=== PATIENT | female | born 2000 | race Caucasian/White ===

== ENCOUNTER 2022-03-04 21:13 | Emergency (ER) | payer BC, OTHER ==
[2022-03-04 21:41] LABS: Bilirubin Neg (Negative); Blood, Urine 25 (Negative); Clarity Sl. Cloudy (Clear); Glucose, Urine (Dipstick) Normal (Negative); Ketone, Urine 150 mg/dL (Negative); Leukocyte 500 (Negative); Nitrite Negative (Negative); Protein, Urine (Dipstick) 15 mg/dl (Neg-Trace)
[2022-03-04 21:42] LABS: Pregnancy Test - Urine (BHCG) Negative (Negative); Pregu Control Background? CLEAR/WHITE (CLR/WHITE); Pregu Control Bar Appear? YES (CONTROL BAR)
[2022-03-04 21:45] LABS: Bacteria/HPF Rare-Few HPF (None Seen); Mucous/LPF 1+ LPF (<2+)
[2022-03-04] MEDS ORDERED: Ondansetron PF 4 MG/2 ML Vial ONE (23:30)
[2022-03-04 23:58] LABS: Hemoglobin 12.9 g/dL (12.0-15.5); Mean Corpuscular Hemoglobin 30.4 pg (27.0-33.0); Mean Platelet Volume 9.3 fl (7.4-10.4); Platelet Count 286 10x3/uL (150-450); RBC Distribution Width 12.2 % (11.5-14.5); Red Blood Cell (RBC) Count 4.24 10x6/uL (3.90-5.03)
[2022-03-05 00:15] LABS: ALT (SGPT) 11 U/L (8-55); AST (SGOT) 13 U/L (5-34); Albumin 4.6 g/dL (3.5-5.0); Alkaline Phosphatase 59 U/L (40-100); Anion Gap 17 mmol/L (10-20); BUN (Urea Nitrogen) 8 mg/dL (7.0-18.7); Bilirubin, Total 2.4 mg/dL (0.2-1.2); Calc. Creatinine Clearance 0 mL/min (70-130); Calcium 9.5 mg/dL (7.8-10.44); Carbon Dioxide 20 mmol/L (22-29); Chloride 105 mmol/L (98-107); Estimated GFR 123; Globulin 2.6 g/dL (2.4-3.5); Glucose 90 mg/dL (70-105); Potassium 3.8 mmol/L (3.5-5.1); Protein, Total 7.2 g/dL (6.0-8.3); Sodium 138 mmol/L (136-145)
[2022-03-05 00:26] LABS: MDiff Complete? YES
[2022-03-05 00:31] LABS: Band 10 % (5-11); Eosinophils 1 % (0-10); Lymphocytes 5 % (28-48); Monocytes 6 % (0-4); Neutrophil 77 % (31-61); Reactive Lymphocytes 1 % (0-10)
[2022-03-05 00:32] LABS: Platelet Morphology Comment Appears Adequate; RBC Morphology Normal
[2022-03-05 01:36] LABS: Bilirubin Neg (Negative); Blood, Urine Negative (Negative); Clarity Clear (Clear); Glucose, Urine (Dipstick) Normal (Negative); Ketone, Urine 150 mg/dL (Negative); Leukocyte 25 (Negative); Nitrite Negative (Negative); Protein, Urine (Dipstick) Negative (Neg-Trace); Urobilinogen Normal mg/dL (Less than 2); pH, Urine 6.5 (5.0-9.0)
[2022-03-05 01:49] LABS: Pregnancy Test - Urine (BHCG) Negative (Negative)
[2022-03-05 01:50] LABS: Pregu Control Background? CLEAR/WHITE (CLR/WHITE); Pregu Control Bar Appear? YES (CONTROL BAR)
[2022-03-05] MEDS ORDERED: Metoclopramide HCl 10 MG/2 ML VIAL ONE (02:01)
[2022-03-05] MEDS ORDERED: Ketorolac Tromethamine 30 MG/ML VIAL ONE (02:01)
== END 2022-03-05 03:10 | disposition home or self-care (01) ==
LOC: CSHERS 21:13
DX: R11.2 Nausea with vomiting, unspecified (principal); R51.9 Headache, unspecified
CPT/HCPCS: 80053; 81003; 81015; 81025; 85025; 96361; 96365; 96375; J1885; J2405; J2765

== ENCOUNTER 2024-02-16 15:59 | Outpatient (CLI) | payer BC | END 2024-02-16 16:00 | disposition home or self-care (01) | LOC: CSHLAB 15:59 | PROVIDERS: ATTEND Obstetrics & Gynecology | DX: Z01.812 Encounter for preprocedural laboratory examination (principal); R10.2 Pelvic and perineal pain | CPT/HCPCS: 84703; 85027; 86850; 86900; 86901 ==

== ENCOUNTER 2024-02-18 05:53 | Day surgery (SDC) | payer BC ==
[2024-02-16 16:21] VITALS: BMI 21.9
[2024-02-16 16:40] LABS: BHCG - Serum Negative (NEGATIVE); Pregs Control Bar Appear? YES (CONTROL BAR)
[2024-02-16 16:41] LABS: Pregs Control Background? CLEAR/WHITE (CLR/WHITE)
[2024-02-16 17:14] LABS: Hematocrit 39.2 % (34.9-44.5); Hemoglobin 13.1 g/dL (12.0-15.5); Mean Corpuscular HGB CONC 33.4 g/dL (32.0-36.0); Mean Corpuscular Volume 89.7 fL (81.6-98.3); Mean Platelet Volume 9.5 fL (7.4-10.4); Platelet Count 360 10x3/uL (150-450); RBC Distribution Width 12.3 % (11.5-14.5); Red Blood Cell (RBC) Count 4.37 10x6/uL (3.90-5.03); White Blood Cell (WBC) Count 7.7 10x3/uL (3.5-10.5)
[2024-02-18] MEDS ORDERED: CeleCOXIB 100 MG CAP ONE (06:32)
[2024-02-18] MEDS ORDERED: Gabapentin 300 MG CAP ONE (06:33)
[2024-02-18] MEDS ORDERED: PROPOFOL 20 ML ONE (06:43)
[2024-02-18] MEDS ORDERED: fentaNYL 50 mcg/mL 1 mL Vial ONE ×4 (06:43→09:56)
[2024-02-18] MEDS ORDERED: Lidocaine 1% PF 5 ML VIAL ONE (06:44)
[2024-02-18] MEDS ORDERED: Rocuronium Bromide 10 MG/ML (10ML VIAL) ONE (06:44)
[2024-02-18] MEDS ORDERED: Bupivacaine HCl 0.5%/Epinephrine 1:200,000/PF 30 ml Vial ONE (06:54)
[2024-02-18] MEDS ORDERED: CEFAZOLIN 2 GM VIAL ONE (07:13)
[2024-02-18] MEDS ORDERED: Dexamethasone 4 mg/ml Vial ONE (07:55)
[2024-02-18] MEDS ORDERED: Ondansetron PF 4 MG/2 ML Vial ONE (07:55)
[2024-02-18] MEDS ORDERED: Ketorolac Tromethamine 30 MG (1 mL) VIAL ONE (09:10)
[2024-02-18] MEDS ORDERED: SUGAMMADEX SODIUM 200 MG/2 ML VIAL ONE ×2 (09:16→09:26)
[2024-02-18] MEDS ORDERED: Meperidine HCl/PF 25 MG (1 mL) VIAL ONE (10:25)
[2024-02-18] MEDS ORDERED: HYDROcodone/Acetaminophen 5/325 mg Tablet ONE (11:02)
== END 2024-02-18 11:17 | disposition home or self-care (01) ==
LOC: CSHSDC 05:53
PROVIDERS: ATTEND Obstetrics & Gynecology
PROC: 0DTJ4ZZ Resection of Appendix, Percutaneous Endoscopic Approach (ICD-10-PCS; principal; 2024-02-18)
PROC: 0UB98ZX Excision of Uterus, Via Natural or Artificial Opening Endoscopic, Diagnostic (ICD-10-PCS; principal; 2024-02-18)
DX: N80.00 Endometriosis of the uterus, unspecified (principal); K38.0 Hyperplasia of appendix; K38.8 Other specified diseases of appendix; F41.9 Anxiety disorder, unspecified; F32.A Depression, unspecified; M99.04 Segmental and somatic dysfunction of sacral region; Z79.899 Other long term (current) drug therapy
CPT/HCPCS: 84703; 85027; 86850; 86900; 86901; 88304; 88305; C1889; J1100; J1885; J2175; J2405; J2704; J3010